=== PATIENT | male | born 1940 | race Caucasian/White ===

== ENCOUNTER 2016-11-03 22:49 | Observation (INO) | payer OTHER, MEDICARE ==
[~2016-11-03] VITALS: Ht 170.2 cm; Wt 87.4 kg
[~2016-11-03 22:49] MED LIST: ANTIVERT25 MG PO; ASCORBIC ACID500 M3 PO; ASPIR 8181 M1 PO; CARVEDILOL25 MG PO; ELIQUIS5 MG PO; FISH OIL 1,0001 EAC7 PO; KLOR-CON 1010 ME1 PO; LASIX20 MG PO; LIPITOR20 MG PO; LISINOPRIL20 MG PO; MIRALAX17 GM PO; MULTIVITAMIN1 EAC2 PO; PRILOSEC20 MG PO; VITAMIN D1000 INTUN PO; VITAMIN E200 UNIT PO; VITAMIN E400 UNIT PO
[2016-11-03 23:26] LABS: HEMATOCRIT 43.1 % (38.0-50.0); MCH 31.1 PG (29.0-34.0); MCHC 34.3 G/DL (30.0-36.0); MCV 90.5 FL (86-99); MEAN PLAT.VOLUME 9.2 uM^3 (9.0-12.4); PLATELET COUNT 224 K/uL (156-360); RBC DIS.WIDTH-CV 12.5 % (11.8-14.6); RBC DIS.WIDTH-SD 40.8 % (39-53); RED BLOOD COUNT 4.76 M/uL (4.00-5.50); WHITE BLOOD COUNT 7.6 K/uL (4.1-10.2)
[2016-11-03 23:36] LABS: INTER. NORMALIZED RATIO 1.1; PROTHROMBIN TIME 11.7 (9.2-11.2); PTT 32.7 (25-32)
[2016-11-03 23:39] LABS: CHLORIDE 106 mEq/L (99-109); POTASSIUM 3.4 mEq/L (3.7-5.4); SODIUM 140 mEq/L (136-147)
[2016-11-03 23:41] LABS: GLUCOSE 106 mg/dL (70-99)
[2016-11-03 23:43] LABS: ANION GAP 9 MEQ/L (2-14)
[2016-11-03 23:45] LABS: GFR ESTIMATE (CALCULATED) > 59 mL/min/
[2016-11-03 23:46] LABS: UREA NITROGEN (BUN) 16 mg/dL (9-23)
[2016-11-03 23:53] LABS: TROP-I INTERPRETATION NEGATIVE; TROPONIN-I 0.01 ng/mL (0.0-0.30)
[2016-11-04 01:05] LABS: MAGNESIUM 1.9 mg/dL (1.3-2.7)
[2016-11-04 04:54] VITALS: BP 178/93
[2016-11-04 07:20] VITALS: BP 173/89
[2016-11-04] MEDS ORDERED: LISINOPRIL20 MG PO (07:34)
[2016-11-04] MEDS ORDERED: ASCORBIC ACID500 M3 PO (07:39)
[2016-11-04] MEDS ORDERED: VITAMIN D31000 UNI2 PO (07:40)
[2016-11-04] MEDS ORDERED: OMEPRAZOLE40 M1 PO (07:41)
[2016-11-04 08:13] LABS: TROP-I INTERPRETATION NEGATIVE; TROPONIN-I < 0.01 ng/mL (0.0-0.30)
[2016-11-04 08:16] LABS: HDL CHOLESTEROL 30 MG/DL (Desirable>=40); LDL CHOLESTEROL 49 mg/dL (Desirable<100); NON-HDL CHOLESTEROL 69 mg/dL (Desirable<160); TOTAL CHOLESTEROL 99 mg/dL (Desirable<200); TRIGLYCERIDES 99 MG/DL (Normal: <150)
[2016-11-04 11:12] VITALS: BP 148/77
[2016-11-04] MEDS ORDERED: VITAMIN E200 UNI2 PO (12:17)
[2016-11-04 13:12] LABS: ANION GAP 5 MEQ/L (2-14); CHLORIDE 108 MEQ/L (99-109); GFR ESTIMATE (CALCULATED) > 59 mL/min/; GLUCOSE 90 mg/dL (70-99); MAGNESIUM 1.9 mg/dl (1.3-2.7); SAMPLE HEMOLYSIS CHECK 0; SAMPLE ICTERIC CHECK 0; SAMPLE LIPEMIA CHECK 0; SODIUM 141 MEQ/L (136-147); UREA NITROGEN (BUN) 14 mg/dL (9-23)
[2016-11-04 13:13] LABS: TROP-I INTERPRETATION NEGATIVE; TROPONIN-I < 0.01 ng/mL (0.0-0.30)
[2016-11-04 13:19] LABS: POTASSIUM 4.5 MEQ/L (3.7-5.4)
== END 2016-11-04 14:20 | disposition home or self-care (01) ==
LOC: EME 22:49 → EDOF 11-04 00:54 → 5WEST 11-04 04:49
PROVIDERS: Emergency Medicine; Physician Assistant Medical
DX: I42.9 Cardiomyopathy, unspecified (principal); Z95.810 Presence of automatic (implantable) cardiac defibrillator; I47.2 Ventricular tachycardia; E87.6 Hypokalemia; I10 Essential (primary) hypertension; E78.5 Hyperlipidemia, unspecified; Z86.73 Personal history of transient ischemic attack (TIA), and cerebral infarction without residual deficits; I48.91 Unspecified atrial fibrillation; Z79.01 Long term (current) use of anticoagulants; Z79.82 Long term (current) use of aspirin; Z87.891 Personal history of nicotine dependence
CPT/HCPCS: 71010; 80048; 80061; 83735; 84484; 85027; 85610; 85730; 93005; 99281; 99285; G0378; J3480

== ENCOUNTER 2016-11-27 12:31 | Day surgery (SDC) | payer OTHER, MEDICARE ==
[~2016-11-27] VITALS: Ht 170.2 cm; Wt 83.9 kg
[~2016-11-27 12:31] MED LIST changes: +OMEPRAZOLE40 M1 PO; +VITAMIN D31000 UNI2 PO; +VITAMIN E200 UNI2 PO
== END 2016-11-27 15:30 | disposition home or self-care (01) ==
LOC: CATH 12:31
DX: Z45.02 Encounter for adjustment and management of automatic implantable cardiac defibrillator (principal); I48.92 Unspecified atrial flutter; I42.8 Other cardiomyopathies; I10 Essential (primary) hypertension; E78.5 Hyperlipidemia, unspecified; K21.9 Gastro-esophageal reflux disease without esophagitis; Z86.73 Personal history of transient ischemic attack (TIA), and cerebral infarction without residual deficits
CPT/HCPCS: C1882; J0690; J1200; J2250; J3010; S0020